=== PATIENT | male | born 1945 | race Caucasian/White ===

== ENCOUNTER → 2017-06-13 16:56 | Outpatient (CLI) | payer MEDICARE, SELFPAY ==
--- NOTE | 2017-06-13 17:03 | CT_ITS ---
STUDY: CT ABDOMEN AND PELVIS WITHOUT CONTRAST REASON FOR EXAM: Male, 71 years old. Frequent urination, penile pain, history of kidney stones RADIATION DOSAGE (If Supplied By Facility): CTDIvol = ( 14.8 ) mGy, DLP = ( 707.38 ) mGycm TECHNIQUE: Transaxial images were obtained from the dome of the diaphragm to the symphysis pubis without oral contrast, and without intravenous contrast. Sagittal and coronal images were reconstructed. Individualized dose optimization techniques were used for this CT. COMPARISON: None. FINDINGS: The visualized lung bases are unremarkable. The visualized portions of the heart are within normal limits. Normal liver. The portal vein diameter is 14 mm. Normal gallbladder and extrahepatic biliary system. The diameter of the common bile duct is 5 mm. There is mild splenomegaly, measuring 15.9 x 12.5 x 5.85 cm. Normal pancreas. Normal bilateral adrenal glands. 5.5 mm nonobstructing stone seen at the midpole of the right kidney. Inferior to this stone, there is notable cortical thinning of the posterior right lower pole. There is a nonobstructing 8.5 mm stone at the upper pole the left kidney. No hydronephrosis. Normal visualized stomach. Normal small intestine. There are multiple colonic diverticula consistent with diverticulosis. The appendix is visualized and appears normal. Normal abdominal aorta. There is moderate eccentric atherosclerotic calcification of the proximal right common iliac artery, and minor calcification on the left. The distal right common iliac artery has a caliber of 1.75 cm. Additional moderate calcific plaquing seen in the right external iliac artery. Normal inferior vena cava. Normal retroperitoneum. Normal urinary bladder. There is enlargement of the prostate gland, measuring 7.4 x 5.75 x 8.4 cm. This includes soft tissue density involving the posterior aspect of the urinary bladder, likely the central lobe of the prostate gland indenting or invading the bladder floor. Blood clot in the posterior bladder might also have this appearance. There are coarse calcifications of the posterior prostate gland. There is a small umbilical hernia containing fat. There is mildly prominent fat extending from the inguinal canals to the spermatic cords. Additional small, fat-containing right direct inguinal hernia is identified. There are diffuse degenerative changes of the visualized spine. There is a grade 1 spondylolisthesis of L4 on L5, and mild retrolisthesis of L5 on S1. Severe degenerative arthroses of the bilateral sacroiliac joints also present. CT/Abdomen/Pelvis without Cont IMPRESSION: 1. Enlarged prostate gland with central lobe indenting or invading the urinary bladder floor. The urinary bladder itself is grossly unremarkable. 2. Bilateral nonobstructing nephrolithiasis. No hydronephrosis. There is cortical thinning in the posterior lower pole of the right kidney below the site of a midpole stone. 3. Colonic diverticulosis without acute diverticulitis. No sign of bowel obstruction. The appendix is not visualized. 4. Mild splenomegaly. 5. Atherosclerotic calcification of the bilateral iliac arteries. There is 1.75 cm fusiform ectasia of the right common iliac artery. 6. Degenerative changes of the spine and bilateral sacroiliac joints, as noted. 7. Small, fat-containing umbilical hernia and small, fat-containing right direct inguinal hernia. Mildly prominent fat also seen extending from the bilateral inguinal canals into the spermatic cords. Electronically Signed: Elia Covarrubias MD at 17:48 EDT , Service support ,
== END ==
PROVIDERS: Family Provider Nurse Practitioner Family; PCP Nurse Practitioner Family; Visit Provider Urology
DX: N20.0 Calculus of kidney (principal)
CPT/HCPCS: 74176

== ENCOUNTER 2018-03-07 13:22 | Day surgery (SDC) | payer MEDICARE, SELFPAY ==
[2018-02-28 11:23] VITALS: BP 157/91; PULSE 81; RESP 17; TEMP 37.4; O2SAT 98; BMI 36.1
--- NOTE | 2018-02-28 11:50 | SDCEKG_ITS ---
Test Reason : Blood Pressure : / mmHG Vent. Rate : 082 BPM Atrial Rate : 082 BPM P-R Int : 162 ms QRS Dur : 092 ms QT Int : 396 ms P-R-T Axes : 053 023 039 degrees QTc Int : 462 ms Normal sinus rhythm Normal ECG Confirmed by NATACHA MACE, JU ([id number]), newspaper photo editor STEVE KHAN ([id number]) on 03/02/2018 2:48:24 PM Referred By: Anton Cade Confirmed By:JU MANZANO MD
[2018-02-28 12:48] LABS: AST(SGOT) 28 U/L (15-37); Alanine Aminotransfer ALT/SGPT 27 U/L (16-61); Albumin, Serum 3.8 g/dL (3.2-5.0); Alkaline Phosphatase 70 U/L (45-117); Anion Gap 6 (5-15); BUN 19 mg/dL (7-18); BUN/Creat Ratio 16.5 RATIO (10-20); Calcium,Total 8.8 mg/dL (8.5-10.1); Chloride 107 mmol/L (98-107); Creatinine, Serum 1.15 mg/dL (0.70-1.30); EST Glomerular Filtration Rate 67 mL/min (>60); Est Glom Filt Rate - Afr Amer 81 mL/min (>60); Estimated Creatinine Clearance 70.42 ml/min; Globulin 3.9 g/dL (2.2-4.2); Glucose 101 mg/dL (74-106); Potassium 4.1 mmol/L (3.5-5.1); Protein, Total 7.7 g/dL (6.4-8.2); Sodium Level 139 mmol/L (136-145)
[2018-03-07] VITALS (9 sets, daily range): BP systolic 116–178; BP diastolic 64–102; PULSE 60–78; RESP 16–18; TEMP 36.2–36.8; O2SAT 97–100; BMI 36.1; BMI 35.9
--- NOTE | 2018-03-07 15:35 | PROS_PTH ---
PATIENT: YVONNE WRIGHT LOC: [facility] [place] U#:[id number] AGE/SX: 72/M ROOM: RE03/07/[address]: Dr. Anton Cade MD : [id number] BED: DIS: 03/09/2018 SPEC #: [id number] RECD: 03/08/18 10:40 STATUS: NIKKI GWEN #: [id number] BELINDA: 03/07/18 15:[address]: Anton Cade DEPT: SURGICAL PATHOLOGY RECD BY: Vlad Denny ENTERED: 03/08/18 11:41 SP TYPE: TURP OTHR DR: Mara Calles, HEAT TREATER-C Tissues: Prostate, NOS Procedures: Surgery Specimen Level IV HEADER OPERATION: Cysto, TUR, prostate, [employer] PRE-OP DIAGNOSIS: Enlarged prostate TISSUE SUBMITTED: Prostate tissue MICROSCOPIC DIAGNOSIS Prostate, transurethral resection: Benign nodular hyperplasia, glandular and stromal types. Mild chronic inflammation. AM:marielena 03/09/18 MICROSCOPIC DESCRIPTION Slides are reviewed. GROSS DESCRIPTION Received is one container labeled with the patient's name and designated prostate tissue. The specimen consists of multiple irregular fragments of pink-mcnally, rubbery, soft tissue that in aggregate weigh 39.4 gm and measure in aggregate 8 x 9 x 3 cm. The entire specimen is submitted in 12 cassettes. / SJ:marielena 03/08/18 TC:3 CPT: 57753
--- NOTE | 2018-03-07 16:58 | PCM.DC.URO ---
Discharge Diet: Light diet - advance as tolerated Discharge Activity: May Shower May shower in (days): 1 Call your doctor if your incision/area has: Continuous Slow Oozing, Sudden Increased Bleeding, Increased Pain/ Swelling, Increased Redness, Foul Smelling Discharge, Swelling at the incision site Call your doctor if you observe: Fever of 101 or Higher Suture Line Care: Avoid Pulling/Pushing, Avoid Pinching/Bending Instructions: Transurethral Resection of the Prostate (TURP): Home Recovery Allergies/Adverse Reactions: Allergies No Known Allergies Allergy (Verified 02/28/18 11:17) Medications to take at Discharge Atenolol [Tenormin (beta sonia)] 50 mg PO DAILY 10/17/16 Fluticasone 0.05% [Flonase Nasal [place]] 2 spray NASAL DAILY PRN 10/17/16 Simvastatin [Zocor] 40 mg PO QHS 10/17/16 Primary Care Physician: Mara Calles NP-C [Primary Care Provider] - Test Results: Test results from this visit will be discussed in further detail at your follow-up appointment, if applicable. Please Follow Up With: Anton Cade MD When: please call to make an appointment. Proposed Discharge Date: 03/08/18
[2018-03-07] MEDS: Cefazolin 2 GM in 0.9% Normal Saline 100 ML IV (17:00)
--- NOTE | 2018-03-07 18:56 | OP.PCM_ITS ---
Report of Operation Date of Procedure: 03/07/18 Pre-Operative Diagnosis: BPH with obstruction Post-Operative Diagnosis: Same Surgery/Procedure Performed:: Transurethral resection of the prostate Description of Surgical Findings:: 72-year-old male with a very large obstructive prostate was taken back to the operating room for transurethral resection, he underwent general anesthesia, the penis and testicles were prepped and draped in usual fashion, went into the bladder with a 26 [place] continuous flow resectoscope, I then started resecting he had a very large protruding obstructive median lobe this was resected down to the muscle fibers of the bladder I then resected the floor of the prostate and then worked my way up on the right side of the prostate resected in the right tissue laterally and anteriorly identified the verumontanum make sure that all the resection was in front of the verumontanum and then breast resected the left lobe of the prostate all the way laterally and anteriorly, at the end I then Ellik out all the chips fairly large prostate a lot of bleeding cauterized with the bipolar long time obtained fairly good hemostasis and then put a three-way catheter in the bladder was put on continuous irrigation still little bit bloody. Before the three-way catheter was placed into the flow test he did have a fairly good flow check the sphincter the sphincter was intact no resection past the sphincter the sphincter coapted together nicely patient anesthetic was reversed he was placed on continuous bladder irrigation and is taken back to PACU in good condition had a large prostate with a lot of resection but still a lot of tissue within the prostate but after an hour to have a resecting felt like is necessary to stop. Type of Anesthesia:: General Drains: 3 way fernandes. - Admit VTE Documentation VTE Present on Admission: No VTE Mechan Device Prophylaxis: SCD's
[2018-03-07] MEDS: 0.9% Normal Saline 1,000 ML 75 ML IV (20:55)
[2018-03-07] MEDS: Ondansetron 4 MG/2 ML Vial IV (20:55)
[2018-03-07] MEDS: 0.9% NaCl Peripheral Flush Adult/Peds IV (20:55)
[2018-03-07] MEDS: Docusate Sodium 100 MG Capsule PO (22:49)
[2018-03-07] MEDS: Ciprofloxacin 500 MG Tablet PO (22:49)
[2018-03-07] MEDS: Nystatin Ointment 1 APPLIC TOPICAL (22:54)
[2018-03-07] MEDS: Acetaminophen/Codeine #3 Tablet 1 TABLET PO (22:54)
[2018-03-08 00:38] VITALS: BP 135/81; PULSE 65; RESP 16; TEMP 36.4; O2SAT 95
[2018-03-08] MEDS: Acetaminophen 325 MG Tablet PO ×3 (02:14→13:24)
[2018-03-08] MEDS: oxyCODONE 5 MG Tablet PO (04:55)
[2018-03-08 06:21] VITALS: BP 109/64; PULSE 62; RESP 16; TEMP 36.3; O2SAT 97
[2018-03-08] MEDS: Ciprofloxacin 500 MG Tablet PO ×2 (08:56→22:07)
[2018-03-08] MEDS: Docusate Sodium 100 MG Capsule PO ×2 (08:56→22:07)
[2018-03-08] MEDS: Pantoprazole Sodium 40 MG Tablet PO (08:56)
[2018-03-08] MEDS: 0.9% Normal Saline 1,000 ML 75 ML IV ×2 (08:57→22:07)
[2018-03-08 11:30] VITALS: BP 113/61; PULSE 62; RESP 18; TEMP 36.7; O2SAT 98
[2018-03-08] MEDS: Nystatin Ointment 1 APPLIC TOPICAL ×2 (11:33→22:08)
[2018-03-08] MEDS: Tamsulosin HCl 0.4 MG Capsule PO ×2 (11:33→22:07)
[2018-03-08] MEDS: Atenolol 50 MG Tablet PO (11:33)
[2018-03-08] MEDS: Fluticasone 0.05% 1 SPRAY NASAL.SRY 2 SPRAY NASAL (11:36)
[2018-03-08 15:47] VITALS: BP 134/74; PULSE 70; RESP 18; TEMP 36.6; O2SAT 98
[2018-03-08] MEDS: Ibuprofen 600 MG Tablet PO (16:12)
[2018-03-08] MEDS: Acetaminophen/Codeine #3 Tablet 1 TABLET PO (22:07)
[2018-03-08] MEDS: Atorvastatin Calcium 20 MG Tablet PO (22:08)
[2018-03-08 22:39] VITALS: BP 116/64; PULSE 68; RESP 16; TEMP 36.4; O2SAT 95
[2018-03-09 03:37] VITALS: BP 120/72; PULSE 62; RESP 14; TEMP 36.3; O2SAT 97
[2018-03-09] MEDS: Ibuprofen 600 MG Tablet PO (05:25)
--- NOTE | 2018-03-09 08:04 | PCM.PN.BLA ---
Progress Note urine is more clear today doing well remove fernandes, 3 way, 30 cc in balloon home today after voids.
[2018-03-09 10:50] VITALS: BP 159/81; PULSE 87; RESP 18; TEMP 36.3; O2SAT 98
[2018-03-09] MEDS: Ciprofloxacin 500 MG Tablet PO (10:51)
[2018-03-09] MEDS: Pantoprazole Sodium 40 MG Tablet PO (10:51)
[2018-03-09] MEDS: Docusate Sodium 100 MG Capsule PO (10:51)
[2018-03-09] MEDS: Atenolol 50 MG Tablet PO (10:51)
[2018-03-09] MEDS: Tamsulosin HCl 0.4 MG Capsule PO (10:51)
[2018-03-09] MEDS: Nystatin Ointment 1 APPLIC TOPICAL (10:52)
[2018-03-09] MEDS: Fluticasone 0.05% 1 SPRAY NASAL.SRY 2 SPRAY NASAL (10:52)
--- NOTE | 2018-03-09 11:48 | CASEMGMT ---
RN CM NOTE: GARCÍA formed reviewed with pt and questions answered. Pt signed form, copy made and placed on chart, and pt given original. Pt also provided with MCR handout/info Are you a Hospital Inpatient or Outpatient. Grabiel SOLISN RN CM
--- OUTSIDE RECORDS SUMMARY | 2018-04-23 17:16 | XMS RPT_ITS ---
:1945 Author Organization OHIP Care Team Providers Name Role Phone Craig Eric Attending Unavailable HelgaaJose Referring Unavailable AlyssiaAnton reyes Attending Unavailable Craig Eric Referring Unavailable Marli, Mara Primary Care Unavailable AlyssiaAnton Attending Unavailable AlyssiaAnton Referring Unavailable Marli, Mara Primary Care Unavailable Marli, Mara L Attending Unavailable Debbie, Luis Alberto Primary Care Unavailable Marli, Mara L Admitting Unavailable Marli, Mara L Admitting Unavailable Marli, Mara L Attending Unavailable Debbie, Luis Alberto Primary Care Unavailable Debbie, Luis Alberto Primary Care Unavailable Marli, Mara L Admitting Unavailable Marli, Mara L Attending Unavailable Umang Winn D Admitting Unavailable PaUmang D Attending Unavailable Debbie, Luis Alberto Primary Care Unavailable Gallagher, Jesse Attending Unavailable Debbie, Luis Alberto Primary Care Unavailable Gallagher, Jesse Admitting Unavailable AlyssiaAnton Admitting Unavailable AlyssiaAnton Attending Unavailable Debbie, Luis Alberto Primary Care Unavailable Gallagher, Jesse Admitting Unavailable Gallagher Jesse Attending Unavailable Debbie, Luis Alberto Primary Care Unavailable Marli, Mara L Admitting Unavailable Marli, Mara L Attending Unavailable Debbie, Luis Alberto Primary Care Unavailable PROBLEMS PROBLEMS DATE TYPE CONDITION / CODE ATTENDING STATUS SOURCE 03/09/2018 Unknown Z01.810 - Encounter Craig Eric Active [place] [facility] / Repository Z01.810(ICD-10) 2017 Unknown N20.0 - Calculus of AlyssiaAnton Active [place] [facility] / Jairon [facility] N20.0(ICD-10) Hospital Repository PROCEDURES PROCEDURES No Procedure Records FoundRESULTS RESULTS OPERATIVE REPORT Observed: 03/07/2018 Status: F Source: JACK 6:56 PM [facility] REPOSITORY [facility] Medical Records Department [address] [place] [address] Operative Report 03/07/18 1852 MR#: [id number] Acct: [id number] Name: YVONNE WRIGHT Rep #: [id number] : 1945 72 From: Anton Cade MD PCP: HALIMA Conde Status: [facility] Y Location: [address] Report of Operation Date of Procedure: 03/07/18 Pre-Operative Diagnosis: BPH with obstruction Post-Operative Diagnosis: Same Surgery/Procedure Performed:: Transurethral resection of the prostate Description of Surgical Findings:: 72-year-old male with a very large obstructive prostate was taken back to the operating room for transurethral resection, he underwent general anesthesia, the penis and testicles were prepped and draped in usual fashion, went into the bladder with a 26 Bulgarian continuous flow resectoscope, I then started resecting he had a very large protruding obstructive median lobe this was resected down to the muscle fibers of the bladder I then resected the floor of the prostate and then worked my way up on the right side of the prostate resected in the right tissue laterally and anteriorly identified the verumontanum make sure that all the resection was in front of the verumontanum and then breast resected the left lobe of the prostate all the way laterally and anteriorly, at the end I then Ellik out all the chips fairly large prostate a lot of bleeding cauterized with the bipolar long time obtained fairly good hemostasis and then put a three-way catheter in the bladder was put on continuous irrigation still little bit bloody. Before the three-way catheter was placed into the flow test he did have a fairly good flow check the sphincter the sphincter was intact no resection past the sphincter the sphincter coapted together nicely patient anesthetic was reversed he was placed on continuous bladder irrigation and is taken back to PACU in good condition had a large prostate with a lot of resection but still a lot of tissue within the prostate but after an hour to have a resecting felt like is necessary to stop. Type of Anesthesia:: General Drains: 3 way fernandes. - Admit VTE Documentation VTE Present on Admission: No VTE Mechan Device Prophylaxis: SCD's 03/07/18 285 <Electronically signed by Anton Cade MD> Date Anton Cade MD CC: TUBE SIZER AND CUTTER OPERATOR-C Mara Calles; Anton Cade MD Signed DISCHARGE INSTRUCTION Observed: 03/07/2018 Status: F Source: [place] 4:59 PM [facility] REPOSITORY [facility] Medical Records Department [address] [place] [address] Instructions for Home/Discharge Instructions 03/07/18 1658 MR#: [id number] Acct: [id number] Name: YVONNE WRIGHT Rep #: [id number] : 1945 72 From: Anton Cade MD PCP: HALIMA Conde [place] [facility] Dis[place] Diet: Light diet - advance as tolerated Discharge Activity: May Shower May shower in (days): 1 Call your doctor if your incision/area has: Continuous Slow Oozing, Sudden Increased Bleeding, Increased Pain/ Swelling, Increased Redness, Foul Smelling Discharge, Swelling at the incision site Call your doctor if you observe: Fever of 101 or Higher Suture Line Care: Avoid Pulling/Pushing, Avoid Pinching/Bending Instructions: Transurethral Resection of the Prostate (TURP): Home Recovery Allergies/Adverse Reactions: Allergies No Known Allergies Allergy (Verified 02/28/18 11:17) Medications to take at Discharge Atenolol [Tenormin (beta sonia)] 50 mg PO DAILY 10/17/16 Fluticasone 0.05% [Flonase Nasal Beverly] 2 spray NASAL DAILY PRN 10/17/16 Simvastatin [Zocor] 40 mg PO QHS 10/17/16 Primary Care Physician: Mara Calles NP-C [Primary Care Provider] - Test Results: Test results from this visit will be discussed in further detail at your follow-up appointment, if applicable. Please Follow Up With: Anton Cade MD When: please call to make an appointment. Proposed Discharge Date: 03/08/18 03/07/181658 <Electronically signed by Anton Cade MD> Date Anton Cade MD CC: TUBE SIZER AND CUTTER OPERATOR-C Mara Olivoitz PROSTATE, TUR Observed: 03/07/2018 Status: F Source: JACK 3:35 PM [facility] REPOSITORY Patient: YVONNE WRIGHT : 1945 (72/M) Acct Num: [id number] Phys: Alyssia MACE,Anton De La O Unit Num: [id number] [place] [facility] Specimen: [id number] Received: 03/08/181039 Spec Type: TURP TISSUES 1 TISSUES: Prostate, NOS GROSS DESCRIPTION Received is one container labeled with the patient's name and designated prostate tissue. The specimen consists of multiple irregular fragments of pink-mcnally, rubbery, soft tissue that in aggregate weigh 39.4 gm and measure in aggregate 8 x 9 x 3 cm. The entire specimen is submitted in 12 cassettes. / SJ :marielena 03/08/18 TC:3 CPT: 69067 HEADER OPERATION: Cysto, TUR, prostate, Olympus PRE-OP DIAGNOSIS: Enlarged prostate TISSUE SUBMITTED: Prostate tissue MICROSCOPIC DESCRIPTION Slides are reviewed. MICROSCOPIC DIAGNOSIS Prostate, transurethral resection: Benign nodular hyperplasia, glandular and stromal types. Mild chronic inflammation. AM:marielena 03/09/18 PSA RESULTS No results available. Signed Doug Polk DO 03/09/18 <signature on file> Performed By: #### PPROS #### [facility] [address] [place], [address] 12 LEAD ELECTROCARDIOGRAM Observed: 03/02/2018 Status: F Source: JACK 2:48 PM [facility] REPOSITORY [facility] Cardiovascular Services [address] [place] [address] EKG - [facility] 02/28/18 1149 MR#: [id number] Acct: [id number] Name: YVONNE WRIGHT Rep #: [id number] : 1945 72 From: Craig Eric MD Attending Dr: Alyssia MACE,Anton De La O Status: PRE SD Ordering Dr: Jose Gray MD Date: 02/28/18 [place] [facility] Sex: M C Admitted: Test Reason : Blood Pressure : / mmHG Vent. Rate : 082 BPM Atrial Rate : 082 BPM P-R Int : 162 ms QRS Dur : 092 ms QT Int : 396 ms P-R-T Axes : 053 023 039 degrees QTc Int : 462 ms Normal sinus rhythm Normal ECG Confirmed by NATACHA MACE, CRAIG ([id number]), assignment desk editor STEVE KHAN ([id number]) on 03/02/2018 2:48:24 PM Referred By: Anton Cade Confirmed By:CRAIG ERIC MD 03/02/18 1448 Date Craig Eric MD CC: TUBE SIZER AND CUTTER OPERATOR-C Mara Calles; Jose Gray MD; Anton Cade MD Date Dictated: 02/28/18 1149 Date Transcribed: 02/28/18 114 [place] Carver: Signed BASIC METABOLIC Collected: 02/28/2018 Status: F Source: JACK PROFILE (BMP) 12:00 PM [facility] REPOSITORY TYPE CODE TESTS RESULT OUT OF RANGE REFERENCE UNITS LAB L501.0100 74-106 mg/dL Normal GLU 101 Result Comment: Fasting Glucose result from 100 to 125 mg/dL suggests IMPAIRED HOMEOSTASIS per A.D.A. criteria. Please note revised GLUCOSE reference range effective 2017. LAB L501.1000 7-18 mg/dL High BUN 19 LAB L501.1100 0.70-1.30 mg/dL Normal CREAT,SERUM 1.15 Result Comment: The validity of the calculated GFR AND GFRAA in patients over 70 years has not been determined. Clinical correlation is essential. LAB L501.1110 >60 mL/min Normal EST GFR 67 Result Comment: Non- GFR Calc LAB L501.1115 >60 mL/min Normal EST GFR - AA 81 Result Comment: GFR Calc LAB L501.1255 ml/min Normal Estimated CRCL 70.42 LAB L501.1300 10-20 RATIO Normal BUN/CRE 16.5 LAB L501.2200 8.5-10 mg/dL Normal .1 CA 8.8 LAB L501.5300 136-14 mmol/L Normal 5 NA 139 LAB L501.5600 3.5-5. mmol/L Normal 1 K 4.1 Result Comment: Slight Hemolysis, Result may be falsely increased. LAB L501.5900 98-107 mmol/L Normal CL 107 LAB L501.6100 21.0-32.0 mmol/L Normal CO2 26.0 LAB L501.6200 5-15 Normal 6 GAP Performed By: #### L500.2500, L500.3400 #### [facility] [address] [place], [place], [address] LIVER PROFILE Collected: 02/28/2018 Status: F Source: [place] 12:00 PM [facility] REPOSITORY TYPE CODE TESTS RESULT OUT OF RANGE REFERENCE UNITS LAB L501.1500 6.4-8.2 g/dL Normal T PROT 7.7 LAB L501.1800 3.2-5.0 g/dL Normal ALB 3.8 LAB L501.1950 2.2-4.2 g/dL Normal GLOB 3.9 LAB L501.4100 15-37 U/L Normal AST 28 Result Comment: Slight Hemolysis, Result may be falsely increased. LAB L501.4305 45-117 U/L Normal ALK P 70 LAB L501.4405 16-61 U/L Normal ALT 27 LAB L501.4600 0.20-1.00 mg/dL Normal T BILI 0.50 LAB L501.4700 0.00-0.30 mg/dL Normal D BILI 0.10 Performed By: #### L500.2500, L500.3400 #### [facility] [address] [place], [place], [address] ABDOMEN/PELVIS WITHOUT Observed: 06/13/2017 Status: F Source: JACK CONT 5:03 PM [facility] REPOSITORY [facility] [place] [address] Abdomen/Pelvis without Cont MR#: [id number] Acct: [id number] Name: YVONNE WRIGHT Rep #: [id number] : 1945 M 71 From: Shiraz Covarrubias MD PCP: Mara Calles Status: REG CLI Study: Abdomen/Pelvis without Cont Date of Exam: 06/13/17 Exam# [id number] Ordering Dr: Anton Cade MD STUDY: CT ABDOMEN AND PELVIS WITHOUT CONTRAST REASON FOR EXAM: Male, 71 years old. Frequent urination, penile pain, history of kidney stones RADIATION DOSAGE (If Supplied By Facility): CTDIvol = ( 14.8 ) mGy, DLP = ( 707.38 ) mGycm TECHNIQUE: Transaxial images were obtained from the dome of the diaphragm to the symphysis pubis without oral contrast, and without intravenous contrast. Sagittal and coronal images were reconstructed. Individualized dose optimization techniques were used for this CT. COMPARISON: None. FINDINGS: The visualized lung bases are unremarkable. The visualized portions of the heart are within normal limits. Normal liver. The portal vein diameter is 14 mm. Normal gallbladder and extrahepatic biliary system. The diameter of the common bile duct is 5 mm. There is mild splenomegaly, measuring 15.9 x 12.5 x 5.85 cm. Normal pancreas. Normal bilateral adrenal glands. 5.5 mm nonobstructing stone seen at the midpole of the right kidney. Inferior to this stone, there is notable cortical thinning of the posterior right lower pole. There is a nonobstructing 8.5 mm stone at the upper pole the left kidney. No hydronephrosis. Normal visualized stomach. Normal small intestine. There are multiple colonic diverticula consistent with diverticulosis. The appendix is visualized and appears normal. Normal abdominal aorta. There is moderate eccentric atherosclerotic calcification of the proximal right common iliac artery, and minor calcification on the left. The distal right common iliac artery has a caliber of 1.75 cm. Additional moderate calcific plaquing seen in the right external iliac artery. Normal inferior vena cava. Normal retroperitoneum. Normal urinary bladder. There is enlargement of the prostate gland, measuring 7.4 x 5.75 x 8.4 cm. This includes soft tissue density involving the posterior aspect of the urinary bladder, likely the central lobe of the prostate gland indenting or invading the bladder floor. Blood clot in the posterior bladder might also have this appearance. There are coarse calcifications of the posterior prostate gland. There is a small umbilical hernia containing fat. There is mildly prominent fat extending from the inguinal canals to the spermatic cords. Additional small, fat-containing right direct inguinal hernia is identified. There are diffuse degenerative changes of the visualized spine. There is a grade 1 spondylolisthesis of L4 on L5, and mild retrolisthesis of L5 on S1. Severe degenerative arthroses of the bilateral sacroiliac joints also present. CT/Abdomen/Pelvis without Cont IMPRESSION: 1. Enlarged prostate gland with central lobe indenting or invading the urinary bladder floor. The urinary bladder itself is grossly unremarkable. 2. Bilateral nonobstructing nephrolithiasis. No hydronephrosis. There is cortical thinning in the posterior lower pole of the right kidney below the site of a midpole stone. 3. Colonic diverticulosis without acute diverticulitis. No sign of bowel obstruction. The appendix is not visualized. 4. Mild splenomegaly. 5. Atherosclerotic calcification of the bilateral iliac arteries. There is 1.75 cm fusiform ectasia of the right common iliac artery. 6. Degenerative changes of the spine and bilateral sacroiliac joints, as noted. 7. Small, fat-containing umbilical hernia and small, fat- containing right direct inguinal hernia. Mildly prominent fat also seen extending from the bilateral inguinal canals into the spermatic cords. Electronically Signed: Elia Covarrubias MD at 17:48 EDT , Service support , CC: Mara Calles; Anton Cade MD [place] Carver: Signed Observed: 06/02/2017 Status: F Source: [facility] C URINE 10:05 AM [facility] REPOSITORY Final Report: Rare growth of Normal skin flower isolated Performed By: #### [id number] #### [facility] Subsection [address] [place] [address] ALLERGIES ALLERGIES DATE TYPE / CODE NAME / CODE REACTION SEVERITY SOURCE 02/28/2018 Drug No Known Unknown Jack Allergy/416 Allergies/Y308428 Community 758016(SN 388(RXNORM) [facility] ED CT) Repository Drug/779110 No Known [facility] 003(SNOMED Allergies [facility] CT) System Repository Drug/461437 No Known [facility] 003(SNOMED Medication [facility] CT) Allergies System Repository ENCOUNTERS ENCOUNTERS ADMIT/DISCHARGE ACCOUNT NUMBER ADMITTING ENCOUNTER LOCATION SOURCE CLASS 03/15/2018/03/15/20 Mara Calles [address] ding:[facility] BAN Repository 03/15/[id number] Repository 03/07/2018/03/09/20 [id number] Ambulatory [address] ding:SDCRoom Repository : [id number] 03/07/2018/03/07/20 [id number] Mara Calles [address] ding:AshFa Repository racRoom: Room 1 02/28/2018 [id number] Ambulatory BMSBuilding: [facility] Repository 06/14/2017/06/15/[id number] ding:[facility] Repository 06/13/2017 [id number] Ambulatory [facility] ding:CT Repository 06/02/2017/06/03/19 [id number] Elliott [address] ding:AshFamP Repository racRoom: Room 1 06/02/2017/06/03/[id number] Anton Cade [address] ding:[facility] BANEY Repository 05/25/2017/05/26/19 [id number] [place] [address] [facility] Repository 05/02/2017/05/02/[id number] Mara Calles [facility] ding:[facility] System Repository 04/24/2017/05/22/[id number] Mara Calles [facility] [address] [facility] ding:[facility] B Repository PAYERS PAYERS ENCOUNTER GUARANTOR PAYER SUBSCRIBER SOURCE 03/15/2018 YVONNE [facility] Rosalind WRIGHTDOB: Insurance:AetnaPolicy ROBERTSDOB: [facility] Number: [id number] Repository [address] [id number] [place], [place] Date:Plan Name:[place], [place] [id number]: [id number]: () () 03/07/2018 YVONNE [facility] YVONNE [place] [id number] Insurance:AETNA SHANTB: Community [address] Number: [id number] [place], [place] [id number] Repository [address]Rda: (419) Date:4754-60-13MA [phone] () [place] [address]HN: 03/07/2018 Secondary NOT GIVENUNK Jack Insurance:SELF PAY [facility] Number: Effective Repository Date:2018-01-23 03/07/2018 [facility] SH[facility]B: Insurance:[facility] ROBERTSDOB: [facility] [id number] MEDICARE [id number] System SEJAL Yancey Number: [address] Repository [place] Effective [place], [place] [id number]: Date:2017-03-06 [id number]: [id number] (HP) Name:CD:[id number] O (HP)Tel: 000) [address], [phone] (WP) [place] [address]SL: 03/07/2018 Secondary YVONNE Crenshaw Insurance:[facility]atar[facility] Number: [id number] System Effective [address] Repository Date:2017-03-06 - [place] [id number] [id number]: Name:CD:[id number] [address]ISPTZYA, [place] (HP)Tel: [phone]) [phone]: (WP) [phone] 02/28/2018 YVONNE [place] Primary YVONNE CHASE1 Insurance:AETNA SHANTB: [facility] [address] Number: [id number] [id number] Repository [address]Bgl: [phone]) Date:5143-46-84VZ [phone] () 758363KWCLINT HDEZ [address]TO: 02/28/2018 Secondary NOT GIVENUNK Jack Insurance:SELF PAY [facility] Number: Effective Repository Date:2018-02-28 06/14/2017 YVONNE Watts Primary YVONNE BRANB: Insurance:TYesi [facility]: [facility] [id number] Number: Effective [id number] System [address] Date:2017-06-07 [address] Repository [place] [id number] [place] [id number]: Name:CD:[id number] [id number]: [id number] [place] URIBE (HP) [phone]: [phone]) (HP) [phone] (WP) 06/13/2017 YVONNE Watts Primary YVONNE CHASE1 Insurance:AETMIRTHA MAYEN: Community [address]reras Number: [id number] [id number] Repository [address]Tpn: ([phone]) Date:2064-82-05VA [phone] (HP) [id number] [place] [address]DD: 06/13/2017 Secondary NOT GIVENUNK Jack Insurance:SELF PAY [facility] Number: Effective Repository Date:2017-06-13 06/02/2017 YVONNE Watts Primary YVONNE BRANB: Insurance:Catarino WRIGHTDOB: [facility] AETNAPolicy Number: [id number] Effective [address] Repository [place] Date:2017-06-02 [place] [id number]: [id number] [id number]: Name:CD:[id number] (HP) [address] [place] [address] (HP)Tel: [phone]: (WP) [phone] 06/02/2017 YVONNE Watts Primary YVONNE BRANB: Insurance:AETNAPolnatasha BRANB: [facility] Number: Effective [id number] Date:2017-06-[address] Repository [place] [id number] [place] [id number]: Name:CD:[id number] [id number]: [address] [place] [address] (HP) [phone]: ([phone]) (HP) [phone] (WP) 05/25/2017 YVONNE Watts Primary YVONNE MAYEN: Insurance:AETNAPolicjhon BRANB: [facility] Number: Effective [id number] [address] Date:2017-05-[address] Repository [place] [id number] [place], [place] [id number]: Name:CD:[id number] [facility] [id number]: [id number] [place] [address] (HP) [phone]: [phone]) (HP) [phone] (WP) 05/02/2017 YVONNE Watts Primary YVONNE BRANB: Insurance:AETNAJim WRIGHTB: [facility] Number: Effective [id number] Date:2017-04-[address] Repository [place] [id number] Java, [place] [id number]: Name:CD:[id number] [facility] [id number]: [id number] [place] [address] (HP) [phone]: ([phone]) (HP) [phone] (WP) 04/24/2017 YVONNE Watts Primary YVONNE BRANB: Insurance:AETNAJim BRANB: [facility] Number: Effective [id number] Date:2017-04-[address] Repository [place] 3580-08-05DlzeNorth [place], [place] [id number]: Name:CD:[id number] [facility] [id number]: [id number] [place] [address] (HP) [phone]: ([phone]) (HP) [phone] (WP)
== END 2018-03-09 12:20 | disposition home or self-care (01) ==
LOC: SDC 13:23 → AC 13:24 → MS2 15:24
PROVIDERS: Anesthesiology; Family Provider Nurse Practitioner Family; PCP Nurse Practitioner Family; Referring Provider Urology; Visit Provider Urology
PROC: (CPT 52601; principal; 2018-03-07 15:25)
DX: N40.1 Benign prostatic hyperplasia with lower urinary tract symptoms (principal); N41.1 Chronic prostatitis; N13.8 Other obstructive and reflux uropathy; R35.0 Frequency of micturition; R35.1 Nocturia; R39.12 Poor urinary stream; N32.89 Other specified disorders of bladder; R39.15 Urgency of urination; I10 Essential (primary) hypertension; E78.00 Pure hypercholesterolemia, unspecified; M48.061 Spinal stenosis, lumbar region without neurogenic claudication; F41.9 Anxiety disorder, unspecified; E66.9 Obesity, unspecified; Z68.36 Body mass index [BMI] 36.0-36.9, adult; Z79.899 Other long term (current) drug therapy; Z87.442 Personal history of urinary calculi; Z87.891 Personal history of nicotine dependence
CPT/HCPCS: 52601; 80048; 80076; 88305; 93005; 97802; J7030; J7120; A4216; J2405

== ENCOUNTER → 2019-12-09 10:49 | Outpatient (CLI) | payer MEDICARE, SELFPAY ==
[2018-03-07 20:38] VITALS: BMI 35.9
--- NOTE | 2019-12-09 11:01 | CT_ITS ---
STUDY: CT ABDOMEN AND PELVIS WITHOUT CONTRAST REASON FOR EXAM: Male, 74 years old. ABDOMINAL PAIN POSSIBLE KIDNEY STONE RADIATION DOSAGE (If Supplied By Facility): CTDIvol = ( 14.69 ) mGy, DLP = ( 775.87 ) mGycm TECHNIQUE: Transaxial images were obtained from the dome of the diaphragm to the symphysis pubis without oral contrast, and without intravenous contrast. Sagittal and coronal images were reconstructed. Individualized dose optimization techniques were used for this CT. COMPARISON: Comparison is made with prior study dated 06/13/2017. FINDINGS: Stable minimal scarring at the lung bases. Coronary artery calcification. Normal liver. Normal gallbladder and extrahepatic biliary system. Normal spleen. Normal pancreas. Normal bilateral adrenal glands. There is a 5.3 mm calculus in the right renal pelvis. No significant hydronephrosis seen. There is a 6.3 mm calculus in the upper pole calyx of the left kidney. Normal visualized stomach. Normal small intestine. There are multiple colonic diverticula consistent with diverticulosis. The appendix is visualized and appears normal. There is scattered atherosclerotic calcification of the abdominal aorta, without a demonstrated aneurysm. Normal inferior vena cava. Normal retroperitoneum. Mild degree of bladder wall thickening. There is enlargement of the prostate gland. It measures 6.1 cm x 6.5 cm. This causes indentation of the bladder base. Prostatic calcifications. There is a small umbilical hernia containing fat. Small bilateral inguinal hernias containing fat. There are diffuse degenerative changes of the visualized lumbar spine. CT/Abdomen/Pelvis without Cont IMPRESSION: 5.3 mm calculus in the right renal pelvis without significant hydronephrosis. 6.3 mm calculus in the upper pole calyx of the left kidney. Prostatic enlargement with indentation at the bladder base. Electronically Signed: Messi Mccray, at 12:11 EDT , Service support ,
== END ==
PROVIDERS: PCP Nurse Practitioner Family; Referring Provider Nurse Practitioner Adult Health; Visit Provider Nurse Practitioner Adult Health
DX: N39.0 Urinary tract infection, site not specified (principal); R31.0 Gross hematuria; N20.0 Calculus of kidney; R10.9 Unspecified abdominal pain
CPT/HCPCS: 74176; 87077; 87086; 87088; 87186

== ENCOUNTER 2020-01-01 11:17 | Day surgery (SDC) | payer MEDICARE, SELFPAY ==
[2018-03-07 20:38] VITALS: BMI 35.9
--- NOTE | 2020-01-01 11:18 | RAD_ITS ---
STUDY: X-RAY - ABDOMEN/PELVIS REASON FOR EXAM: Male, 74 years old. pre op bilateral eswl TECHNIQUE: Single AP view of the abdomen / pelvis. COMPARISON: CT 12/09/2019 FINDINGS: Excluded lung bases. There is an unremarkable bowel gas pattern. There is no demonstrated free abdominal air. 4.7 mm calcification projects over the right psoas muscle at L2-L3 level. 5.9 mm calcification projects over the left renal shadow. Normal soft tissue structures. There are diffuse degenerative changes of the visualized lumbar spine. RAD/Abdomen Single View IMPRESSION: Right UPJ or proximal ureteral calculus. Left nephrolithiasis. Electronically Signed: Cristhian Brody MD (Brooks) at 13:41 EDT , Service support ,
[2020-01-01 12:24] VITALS: BP 153/101; PULSE 70; RESP 18; TEMP 37; O2SAT 97; BMI 33.7
[2020-01-01] MEDS: Lactated Ringers 1,000 ML 100 ML IV (12:44)
[2020-01-01] MEDS: Cefazolin 2 GM in 0.9% Normal Saline 100 ML IV (14:36)
--- NOTE | 2020-01-01 15:31 | PCM.HP.STD ---
History of Present Illness Date of Admission: 01/01/20 Chief Complaint: Bilateral renal calculi The patient is a 74 year old male with a stone in the right renal pelvis and the right Today plan for treatment of stones with shockwave lithotripsy. Past Medical History Allergies No Known Allergies Allergy (Verified 01/01/20 12:23) Home Medications: Ambulatory Orders Medication Instructions Recorded Atenolol [Tenormin (beta sonia)] 75 mg PO DAILY 10/17/16 Fluticasone 0.05% [Flonase Nasal 2 spray NASAL DAILY PRN 10/17/16 [place]] Simvastatin [Zocor] 40 mg PO QHS 10/17/16 Ibuprofen [Motrin] 600 mg PO Q6H PRN PRN #20 tablet 03/07/18 Surgical History: no surgical history Smoking Status: Former smoker Tobacco Use: Non-smoker Review of Systems Constitutional: Denies: Chills, Fever, Weight Change HEENT: Denies: Head Aches, Sinus Congestion, Sinus Drainage Cardiovascular: Denies: Chest Pain, Palpitations Respiratory: Denies: Cough, Shortness of breath at rest, Sputum production Gastrointestinal: Denies: Abdominal Pain, Nausea, Vomiting Genitourinary: Denies: Dysuria Musculoskeletal: Denies: Joint Pain, Joint Tenderness Skin: Denies: Rash, Wounds Neurological: Denies: Numbness, Tingling, Focal weakness Psychiatric: Denies: Anxiety, Depression, Homicidal Ideations, Suicidal Ideations Hematologic/ Lymphatic: Denies: Easy Bruising, Easy Bleeding VTE Information - Inpt Only VTE Present on Admission: No VTE Mechan Device Prophylaxis: SCD's - Physical Exam Vitals/I&O's: Vital Signs Temp Pulse Resp BP Pulse Ox 98.6 F 70 18 153/101 H 97 01/01/20 12:24 01/01/20 12:24 01/01/20 12:24 01/01/20 12:24 01/01/20 12:24 Oxygen Delivery Method Room Air Weight: 119.2 kg Body Mass Index (BMI) 33.7 Intake and Output for Last 24 Hours 12/30/19 12/31/19 01/01/20 23:59 23:59 23:59 Intake Total 110 / 110 Balance 110 / 110 General: Alert, Oriented x3, Cooperative HEENT: Atraumatic, PERRLA, EOMI, Normocephalic Neck: Supple, No JVD, Negative Carotid Bruits Lungs: Clear to auscultation, Normal air movement Cardiovascular: Regular rate, No murmurs Abdomen: Bowel Sounds Present, Soft, Non Tender Extremities: No edema, Capillary Refill Less than 3 Seconds Skin: No rashes, No breakdown Musculoskeletal: No Tenderness to Palpation of Joints or Extremities Neurological: Cranial nerves II-XII grossly intact Psych/Mental Status: Normal Affect, Appropriate Current Medications Lactated Ringer's () 1,000 mls @ 100 mls/hr IV .Q10H CHENG Last Admin: 01/01/20 12:44 Dose: 100 mls/hr Documented by: Assessment/Plan Plan for bilateral shockwave lithotripsy for kidney stones
--- NOTE | 2020-01-01 15:33 | PCM.DC.URO ---
Discharge Diet: No Restrictions Discharge Activity: Return to Normal Activity, May Not Drive - for 2 days. Additional Activity Instructions:: Please be aware that pain medications may cause nausea. You should typically eat light foods as you take your pain medication. Pain medication may cause constipation, if this is a problem for you, please discuss with your doctor. Allergies/Adverse Reactions: Allergies No Known Allergies Allergy (Verified 01/01/20 12:23) Medications to take at Discharge Atenolol [Tenormin (beta sonia)] 75 mg PO DAILY 10/17/16 Fluticasone 0.05% [Flonase Nasal [place]] 2 spray NASAL DAILY PRN 10/17/16 Simvastatin [Zocor] 40 mg PO QHS 10/17/16 Ibuprofen [Motrin] 600 mg PO Q6H PRN PRN #20 tablet 03/07/18 Primary Care Physician: Mara Calles NP, ACCOUNTING ANALYST-C [Primary Care Provider] - Test Results: Test results from this visit will be discussed in further detail at your follow-up appointment, if applicable. Please Follow Up With: Anton Cade MD When: in 2 weeks, please call to make an appointment.
--- NOTE | 2020-01-01 15:43 | OP.PCM_ITS ---
Report of Operation Date of Procedure: 01/01/20 Pre-Operative Diagnosis: Right renal calculi and left renal calculi Post-Operative Diagnosis: Same Surgery/Procedure Performed:: cystoscopy right retrograde pyelogram right ESWL, left ESWL Description of Surgical Findings:: 74-year-old male was taken back to the operating room after smooth induction of general anesthesia we could localize a stone in the left kidney under fluoroscopy then we delivered delivered 2500 shockwaves to the stone at a rate of 90/min up to 5 to 7 kV at the end of the treatment cycle the stone broke up really well. We then prepped and draped the patient in usual sterile fashion when the bladder with a 21 [place] rigid cystourethroscope I could see evidence of a prior TURP in the prostate I then identified the right ureteral orifice advanced a wire up into the right kidney we performed a retrograde pyelogram and we could see a stone in the renal pelvis retrograde pyelogram was done to identify confirm the location of the stone. We then put the stone in the F2 focal point of the machine and proceeded with shockwave lithotripsy a total of 2500 shockwaves were delivered to the stone the stone broke up really well from the performed another retrograde at the end of the stone it broken up completely. Pollack catheter was removed bladder was drained we treated both stone successfully. Type of Anesthesia:: General Drains: none - Admit VTE Documentation VTE Present on Admission: No VTE Mechan Device Prophylaxis: SCD's
[2020-01-01 15:55] VITALS: BP 133/87; BP 153/101; PULSE 55; RESP 18; TEMP 36.1; O2SAT 96
[2020-01-01 16:00] VITALS: BP 140/77; BP 153/101; PULSE 54; RESP 16; O2SAT 100
[2020-01-01 16:17] VITALS: BP 147/91; BP 153/101; PULSE 53; RESP 18; TEMP 36.3; O2SAT 100
--- NOTE | 2020-01-01 16:35 | SUR.PHASEII ---
PATIENT CONTINUES TO BE VERY ANXIOUS POST-OP. SUPPORT AND ENCOURAGEMENT PROVIDED. STATES PATIENT IS TYPICALLY ANXIOUS HIS BASELINE.
[2020-01-01 17:38] VITALS: BP 153/101; BP 169/85; PULSE 57; RESP 16; TEMP 36.1; O2SAT 99
== END 2020-01-01 17:49 | disposition home or self-care (01) ==
LOC: SDC 11:19 → AC 11:42
PROVIDERS: Anesthesiology; PCP Nurse Practitioner Family; Referring Provider Urology; Visit Provider Urology
PROC: (CPT 50590; principal; 2020-01-01 13:05)
DX: N20.2 Calculus of kidney with calculus of ureter (principal); Z11.59 Encounter for screening for other viral diseases; I10 Essential (primary) hypertension; F41.9 Anxiety disorder, unspecified; Z87.442 Personal history of urinary calculi; Z79.1 Long term (current) use of non-steroidal anti-inflammatories (NSAID); Z87.891 Personal history of nicotine dependence; E78.00 Pure hypercholesterolemia, unspecified
CPT/HCPCS: 50590; 74018; 87635; C9803; J7120; C1758; J2405; U0003

== ENCOUNTER → 2020-01-21 08:50 | Outpatient (CLI) | payer MEDICARE, SELFPAY ==
[2020-01-01 12:24] VITALS: BMI 33.7
--- NOTE | 2020-01-21 09:08 | RAD_ITS ---
STUDY: X-RAY - ABDOMEN/PELVIS REASON FOR EXAM: Male, 74 years old. Kidney stone follow up -- surgery 3 weeks ago TECHNIQUE: Single AP view of the abdomen / pelvis. COMPARISON: 01/01/2020 FINDINGS: There are nonspecific gaseous bowel loops. The previously noted small calcification/stone overlying the left kidney is not definitely identified at this time. No pelvic calcifications are seen other than small phleboliths. Normal soft tissue structures. Normal visualized osseous structures. RAD/Abdomen Single View IMPRESSION: The previously noted stone overlying the left kidney is not definitely identified at this time. Electronically Signed: Dom Morse MD at 1:21 EDT Tel , Service support ,
== END ==
PROVIDERS: PCP Nurse Practitioner Family; Referring Provider Urology; Visit Provider Urology
DX: N20.0 Calculus of kidney (principal); R31.0 Gross hematuria
CPT/HCPCS: 74018

== ENCOUNTER → 2020-01-22 11:02 | Outpatient (CLI) | payer MEDICARE, SELFPAY ==
[2020-01-01 12:24] VITALS: BMI 33.7
[2020-01-22 12:05] LABS: Anion Gap 4 (5-15); BUN 17 mg/dL (7-18); BUN/Creat Ratio 13.3 RATIO (10-20); Calcium,Total 9.2 mg/dL (8.5-10.1); Chloride 106 mmol/L (98-107); Creatinine, Serum 1.28 mg/dL (0.70-1.30); EST Glomerular Filtration Rate 59 mL/min (>60); Est Glom Filt Rate - Afr Amer 71 mL/min (>60); Glucose 88 mg/dL (74-106); Potassium 4.3 mmol/L (3.5-5.1); Sodium Level 139 mmol/L (136-145)
== END ==
PROVIDERS: PCP Nurse Practitioner Family; Referring Provider Urology; Visit Provider Urology
DX: N20.0 Calculus of kidney (principal)
CPT/HCPCS: 36415; 80048

== ENCOUNTER 2021-04-12 15:40 | Outpatient (CLI) | payer MEDICARE, SELFPAY ==
--- NOTE | 2021-04-12 15:55 | RAD_ITS ---
EXAM: XR ABDOMEN, 1 VIEW CLINICAL INDICATION: CALCULUS OF KIDNEY TECHNIQUE: Frontal supine view of the abdomen/pelvis. This report was created using [employer] report generation technology. COMPARISON: None. FINDINGS: LOWER THORAX: No acute pathology. GASTROINTESTINAL TRACT: No bowel obstruction. Prominent stool in the right colon. Limited assessment for urolithiasis due to overlying stool and bowel gas. ORGANS: Unremarkable as visualized. No organomegaly. No abnormal calcifications. BONES/JOINTS: Degenerative changes of the pelvis and spine. SOFT TISSUES: No acute pathology. VASCULATURE: Small phlebolith in the left pelvis. OTHER FINDINGS: No obvious left urolithiasis. RAD/Abdomen Single View IMPRESSION: 1. No acute disease or bowel obstruction. 2. Stool in the right abdomen can be seen with constipation. 3. Recommend CT if still concern for renal calculi. Electronically Signed: Leroy Little MD at 0:31 EST Tel , Service support ,
== END 2021-04-12 23:59 | disposition short-term general hospital (02) ==
LOC: RAD 15:44
PROVIDERS: Referring Provider Urology; Visit Provider Urology
DX: N20.0 Calculus of kidney (principal)
CPT/HCPCS: 74018